=== PATIENT | female | born 1975 | race African-American/Black ===

== ENCOUNTER 2019-02-01 23:18 | Emergency (ER) | payer OTHER ==
[2019-02-02 00:05] VITALS: PULSE 78; TEMP 98; BMI 31.8
--- NOTE | 2019-02-02 00:44 | PDOC ---
History of Present Illness - General Chief Complaint: Pain, Acute Stated Complaint: LT HIP PAIN RADIATING DOWN LT LEG Time Seen by Provider: 02/02/19 00:44 History Source: Patient Exam Limitations: No Limitations - History of Present Illness Initial Comments: 43 year old female with no PMH presented to ED for LLQ/L pelvic pain x1 week. Pt reported her symptoms are intermittent, sharp, radiating around the side to the back, aggravated by movement, no alleviating factors. She reported she took two ibuprofen pills a couple of days ago with some relief, as she was able to sleep. She denied vaginal bleeding, vaginal discharge, nausea, vomiting, diarrhea, constipation, relation of pain to food, relation of pain to defecation , dysuria, blood in stool. Pt reported she isnt currently having the intense pain, but feels a dull pressure. Pt has an appointment with her PCP tomorrow AM , but since her relative was in the ED she decided to be seen as well. PSH: tubal ligation Past History - Past Medical History Allergies/Adverse Reactions: Allergies Allergy/AdvReac Type Severity Reaction Status Date / Time No Known Allergies Allergy Verified 02/02/19 00:02 - Psycho Social/Smoking Cessation Hx Smoking History: Never smoked Review of Systems - Review of Systems Able to Perform ROS?: Yes Comments:: ROS General: denied fever, chills, generalized weakness. HEENT: denied sore throat, rhinorrhea, ear pain. Cardiovascular: denied chest pain, palpitations, syncope, diaphoresis. Respiratory: denied shortness of breath, cough, sputum production, hemoptysis. Gastrointestinal: admitted to abdominal pain. denied nausea, vomiting, diarrhea , constipation, blood in stool. Genitourinary: admitted to left sided pelvic pain. denied dysuria, increased urinary frequency, hematuria, urinary incontinence, flank pain. Back: denied back pain. Musculoskeletal: denied joint pain, muscle pain, joint swelling. Neurological: denied headache, dizziness, numbness, tingling, weakness. Integumentary: denied rash, laceration, abrasion. Hematologic/Lymphatic: denied bruising or bleeding. PE Constitutional: Well-nourished, Well-developed, appearing stated age. HEENT: head is normocephalic, atraumatic. EOMI. PERRLA. Neck: supple. Full ROM. Cardiovascular: regular heart rhythm. no murmurs. no pericardial friction rub. Respiratory: clear to auscultation bilaterally. no crackles, rhonchi or wheezing. no stridor. Gastrointestinal: soft, nontender. normal bowel sounds. no rebound, guarding, masses. Pelvic: normal external genialita. normal white discharge in vaginal canal, no blood noted. no CMT. positive left sided adnexal tenderness. negative right sided adnexal tenderness. Extremities: peripheral pulses intact. no lower extremity edema. Neurological: CN 2-12 grossly intact. moves all four extremities. Psych: awake, alert, oriented x3. follows commands. answers questions appropriately. *Physical Exam - Vital Signs Last Vital Signs Temp Pulse Resp BP Pulse Ox 98.0 F 78 20 145/97 02/01/19 23:18 02/01/19 23:18 02/01/19 23:18 02/01/19 23:18 ED Treatment Course - LABORATORY CBC & Chemistry Diagram: 02/02/19 01:08 02/02/19 01:08 Medical Decision Making - Medical Decision Making 43 year old female with above PMH presented to ED for intermittent acute LLQ/L pelvic pain. Examination significant for left sided adnexal tenderness, abdomen was soft and nontender. Initial Vital Signs Temp Pulse Resp BP 98.0 F 78 20 145/97 02/01/19 23:18 02/01/19 23:18 02/01/19 23:18 02/01/19 23:18 Afebrile. No tachycardia. No tachypnea. Mild hypertension. Labs ordered: CBC, CMP, serum , UA/UC, coags Imaging ordered: TVUS Medications ordered: none 02/02/19 04:00 CBC WBC 8.4 K/mm3 (4.0-10.0) 02/02/19 01:08 RBC 4.25 M/mm3 (3.60-5.2) 02/02/19 01:08 Hgb 12.3 GM/dL (10.7-15.3) 02/02/19 01:08 Hct 36.5 % (32.4-45.2) 02/02/19 01:08 MCV 85.8 fl (80-96) 02/02/19 01:08 MCH 29.1 pg (25.7-33.7) 02/02/19 01:08 MCHC 33.9 g/dl (32.0-36.0) 02/02/19 01:08 RDW 14.4 % (11.6-15.6) 02/02/19 01:08 Plt Count 202 K/MM3 (134-434) 02/02/19 01:08 MPV 10.1 fl (7.5-11.1) 02/02/19 01:08 Absolute Neuts (auto) 4.2 K/mm3 (1.5-8.0) 02/02/19 01:08 Neutrophils % 50.5 % (42.8-82.8) 02/02/19 01:08 Lymphocytes % 38.8 % (8-40) 02/02/19 01:08 Monocytes % 7.7 % (3.8-10.2) 02/02/19 01:08 Eosinophils % 1.8 % (0-4.5) 02/02/19 01:08 Basophils % 1.2 % (0-2.0) 02/02/19 01:08 Nucleated RBC % 0 % (0-0) 02/02/19 01:08 No leukocytosis. No anemia. CMP Sodium 139 mmol/L (136-145) 02/02/19 01:08 Potassium 4.1 mmol/L (3.5-5.1) 02/02/19 01:08 Chloride 107 mmol/L (98-107) 02/02/19 01:08 Carbon Dioxide 22 mmol/L (21-32) 02/02/19 01:08 Anion Gap 10 MMOL/L (8-16) 02/02/19 01:08 BUN 9.5 mg/dL (7-18) 02/02/19 01:08 Creatinine 0.7 mg/dL (0.55-1.3) 02/02/19 01:08 Est GFR (CKD-EPI)AfAm 121.27 02/02/19 01:08 Est GFR (CKD-EPI)NonAf 104.64 02/02/19 01:08 Random Glucose 115 mg/dL (74-106) H 02/02/19 01:08 Calcium 9.0 mg/dL (8.5-10.1) 02/02/19 01:08 Total Bilirubin 0.2 mg/dL (0.2-1) 02/02/19 01:08 AST 14 U/L (15-37) L 02/02/19 01:08 ALT 22 U/L (13-61) 02/02/19 01:08 Alkaline Phosphatase 97 U/L (45-117) 02/02/19 01:08 Total Protein 7.2 g/dl (6.4-8.2) 02/02/19 01:08 Albumin 3.6 g/dl (3.4-5.0) 02/02/19 01:08 Serum , Qual Negative 02/02/19 01:08 No electrolyte abnormalities. No JAMARCUS. No transaminitis. Serum testing negative. TVUS report: no visible IUP (beta-hcg results pending). endometrial stripe obscured by multiple fibroids, largest 5.7 cm. no ovarian torsion. color flow bilaterally with asppropriate arterial and/or venous wavewforms. 1.4 cm dominant left ovary follicle. no free fluid. 02/02/19 04:37 Urine Test Results Urine Color Yellow 02/02/19 03:59 Urine Appearance Clear 02/02/19 03:59 Urine pH 6.0 (5.0-8.0) 02/02/19 03:59 Ur Specific [place] 1.022 (1.010-1.035) 02/02/19 03:59 Urine Protein Negative (NEGATIVE) 02/02/19 03:59 Urine Glucose (UA) Negative (NEGATIVE) 02/02/19 03:59 Urine Ketones Negative (NEGATIVE) 02/02/19 03:59 Urine Blood Negative (NEGATIVE) 02/02/19 03:59 Urine Nitrite Negative (NEGATIVE) 02/02/19 03:59 Urine Bilirubin Negative (NEGATIVE) 02/02/19 03:59 Ur Leukocyte Esterase Negative (NEGATIVE) 02/02/19 03:59 Negative for hematuria. Negative for UTI. Pt informed of results. Pt discharged. Pt informed to F/U with OBGYN. Discharge - Discharge Information Problems reviewed: Yes Clinical Impression/Diagnosis: Uterine fibroid, LLQ pain Condition: Stable Disposition: HOME - Admission No - Follow up/Referral Referrals: Zoë Rangel MD [Primary Care Provider] - - Patient Discharge Instructions Patient Printed Discharge Instructions: DI for Uterine Fibroids Additional Instructions: You have uterine fibroids. Follow up with your OBGYN within 5 days. Your care is not complete until you follow up. Take ibuprofen over the counter for pain. Take as advised on label. Return to the Emergency Department for increasing pain, vomiting, lightheadedness, chest pain, fever, shortness of breath, vomiting, or any other new, worsening or concerning symptoms. - Post Discharge Activity Work/Back to School Note: Back to Work
[2019-02-02 01:29] LABS: BASO % 1.2 % (0-2.0); EOS % 1.8 % (0-4.5); HEMATOCRIT 36.5 % (32.4-45.2); HEMOGLOBIN 12.3 GM/dL (10.7-15.3); LYMPH % 38.8 % (8-40); MCH 29.1 pg (25.7-33.7); MCHC 33.9 g/dl (32.0-36.0); MEAN CELL VOLUME 85.8 fl (80-96); MEAN PLT VOLUME 10.1 fl (7.5-11.1); MONO % 7.7 % (3.8-10.2); NEUT % 50.5 % (42.8-82.8); PLATELET COUNT 202 K/MM3 (134-434); RBC 4.25 M/mm3 (3.60-5.2); RDW 14.4 % (11.6-15.6); WHITE BLOOD COUNT 8.4 K/mm3 (4.0-10.0)
[2019-02-02 01:52] LABS: ALBUMIN 3.6 g/dl (3.4-5.0); BILIRUBIN,TOTAL 0.2 mg/dL (0.2-1); BLOOD UREA NITROGEN 9.5 mg/dL (7-18); CREATININE 0.7 mg/dL (0.55-1.3); POTASSIUM 4.1 mmol/L (3.5-5.1); TOT PROT 7.2 g/dl (6.4-8.2)
[2019-02-02 02:00] LABS: INR 0.92 (0.83-1.09); PROTHROMBIN TIME (PATIENT) 10.9 SEC (9.7-13.0)
--- NOTE | 2019-02-02 03:16 | PDOC ---
Attending Attestation - Resident Resident Name: Pallavi Desouza - ED Attending Attestation I have performed the following: I have examined & evaluated the patient, The case was reviewed & discussed with the resident, I agree w/resident's findings & plan, Exceptions are as noted - HPI HPI: 02/02/19 03:16 43F c/o LLQ abdominal px for 1 week
[2019-02-02 04:15] LABS: URINE APPEARANCE CLEAR; URINE BILIRUBIN NEGATIVE (NEGATIVE); URINE COLOR YELLOW; URINE GLUCOSE (UA) NEGATIVE (NEGATIVE); URINE KETONE NEGATIVE (NEGATIVE); URINE LEUK ESTERASE NEGATIVE (NEGATIVE); URINE NITRITE NEGATIVE (NEGATIVE); URINE PROTEIN NEGATIVE (NEGATIVE); URINE UROBILINOGEN 0.2 mg/dL (0.2-1.0)
[2019-02-02 04:42] VITALS: BP 140/83
[2019-02-02] MEDS ORDERED: IBUPROFEN 400 MG TABLET (FP) PO ONE ×2 (04:44→04:46)
== END 2019-02-02 04:49 | disposition home or self-care (01) ==
LOC: JER 23:18
DX: D25.9 Leiomyoma of uterus, unspecified (principal)
CPT/HCPCS: 36415; 76830-TC; 80053; 81003; 83690; 83735; 84703; 85025; 85610; 85730; 99282-25

== ENCOUNTER 2020-11-16 12:16 | Emergency (ER) | payer OTHER ==
[2020-11-16 12:40] VITALS: BP 123/87; PULSE 113; TEMP 97.9; BMI 32.3
[2020-11-16] MEDS ORDERED: IBUPROFEN 600 MG TABLET (FP) PO ONE ×2 (13:41)
== END 2020-11-16 13:44 | disposition home or self-care (01) ==
LOC: JERFT 12:16 → JER 12:16 → JERFT 13:44
DX: M25.521 Pain in right elbow (principal)
CPT/HCPCS: 73070-TC-RT-FY; 99284-25